=== PATIENT | female | born 1975 ===

== ENCOUNTER 2018-10-23 07:40 | Emergency (ER) | payer OTHER ==
[2018-10-23 07:42] VITALS: BMI 31.1
[2018-10-23 07:44] VITALS: TEMP 98.4; O2SAT 100
--- NOTE | 2018-10-23 09:32 | C.PDOC ---
History Of Present Illness 42 y/o female presents to ED complaining of perineal vaginal pruritis x3 days. Denies any vaginal bleeding or other physical complaints. Time Seen by Provider: 10/23/18 08:03 Chief Complaint (Nursing): Female Genitourinary History Per: Patient History/Exam Limitations: no limitations Onset/Duration Of Symptoms: Days Current Symptoms Are (Timing): Still Present Past Medical History Reviewed: Historical Data, Nursing Documentation, Vital Signs Vital Signs: Last Vital Signs Temp 98.4 F 10/23/18 07:42 Pulse 61 10/23/18 07:42 Resp 16 10/23/18 07:42 BP 101/59 L 10/23/18 07:42 Pulse Ox 100 10/23/18 07:42 Family History: States: No Known Family Hx - Social History Hx Tobacco Use: No Hx Alcohol Use: No Hx Substance Use: No - Immunization History Hx Tetanus Toxoid Vaccination: No Hx Influenza Vaccination: No Hx Pneumococcal Vaccination: No Review Of Systems Except As Marked, All Systems Reviewed And Found Negative. Constitutional: Negative for: Fever Gastrointestinal: Negative for: Abdominal Pain Genitourinary: Positive for: Other (Vaginal pruritis). Negative for: Vaginal Bleeding Skin: Negative for: Rash Physical Exam - Physical Exam Appears: Non-toxic, No Acute Distress Skin: Warm, Dry Head: Atraumatic, Normacephalic Eye(s): bilateral: Normal Inspection Oral Mucosa: Moist Neck: Supple Chest: Symmetrical Cardiovascular: Rhythm Regular, No Murmur Respiratory: Normal Breath Sounds, No Rales, No Rhonchi, No Wheezing Gastrointestinal/Abdominal: Soft, No Tenderness Pelvic: Vaginal Discharge (cottage cheese-like discharge), No Cervical Motion Tenderness, No Tender Uterus, Other (Erythema and scaling in vulva) Extremity: Bilateral: Atraumatic, Normal Color And Temperature, Normal ROM Neurological/Psych: Oriented x3, Normal Speech Gait: Steady ED Course And Treatment O2 Sat by Pulse Oximetry: 100 (RA) Pulse Ox Interpretation: Normal Progress Note: Labs ordered. Patient will be discharged and was given prescription for Diflucan and Terazol cream. Disposition - Disposition Disposition: HOME/ ROUTINE Disposition Time: 09:28 Condition: STABLE Additional Instructions: Follow up with PMD within 1-2 days. Return to ED if feel worse. Prescriptions: Fluconazole [Diflucan] 150 mg PO ONCE #1 tab Terconazole [Terazol 7 (0.4%)CREAM] 1 applic VG QPM #7 tube Instructions: Vulvovaginal Yeast Infection Forms: [facility] (Maltese) Print Language: CENTRAL AFRICAN - Clinical Impression Clinical Impression: Candidal vulvovaginitis - PA / CONSULTANT DIETITIAN / Resident Statement MD/DO has reviewed & agrees with the documentation as recorded. - Scribe Statement The provider has reviewed the documentation as recorded by the Scribe So Silva
[2018-10-23 09:44] VITALS: BP 103/62; PULSE 62; RESP 18
== END 2018-10-23 09:44 | disposition home or self-care (01) ==
LOC: C.ER 07:40
DX: B37.3 Candidiasis of vulva and vagina (principal)

== ENCOUNTER 2018-12-27 13:57 | Outpatient (CLI) | payer OTHER | END 2018-12-27 13:58 | disposition home or self-care (01) | LOC: C.MAMMO 13:57 | DX: R92.8 Other abnormal and inconclusive findings on diagnostic imaging of breast (principal) ==

== ENCOUNTER 2019-01-20 19:11 | Emergency (ER) | payer OTHER | END 2019-01-20 20:15 | disposition home or self-care (01) | LOC: C.ER 19:11 ==

== ENCOUNTER 2019-02-05 09:17 | Outpatient (CLI) | payer OTHER | END 2019-02-05 09:18 | disposition home or self-care (01) | LOC: C.RADH 09:17 | DX: M79.609 Pain in unspecified limb (principal) ==

== ENCOUNTER 2019-03-04 12:54 | Emergency (ER) | payer OTHER ==
[2019-03-04 12:54] VITALS: BMI 31.1
[2019-03-04 13:09] VITALS: RESP 18; O2SAT 97
[2019-03-04] MEDS ORDERED: Sodium Chloride 0.9% 1,000 ML IV ONE (13:24)
--- NOTE | 2019-03-04 13:37 | C.PDOC ---
History Of Present Illness 43 year old female presents to the ED for evaluation of vaginal bleeding for 10 days. States she got her period on 02/22 and has been bleeding since. Patient describes having moderately heavy bleeding, and today noticed some clots. As sociated with crampy pain to her lower abdomen. Patient states this happened last month as well, but she never saw a doctor Otherwise patient reports having normal monthly menstrual cycles. She has changed her pad 8x today so far. Patient denies any dizziness, nausea, vomiting, or other associated complaints. Time Seen by Provider: 03/04/19 13:19 Chief Complaint (Nursing): Female Genitourinary History Per: Patient History/Exam Limitations: no limitations Onset/Duration Of Symptoms: Days (10) Current Symptoms Are (Timing): Still Present Quality Of Discomfort: Cramping Abnormal Vaginal Bleeding: Yes Past Medical History Reviewed: Historical Data, Nursing Documentation, Vital Signs Vital Signs: Last Vital Signs Temp 98.2 F 03/04/19 13:04 Pulse 79 03/04/19 13:04 Resp 18 03/04/19 13:04 BP 122/73 03/04/19 13:04 Pulse Ox 97 03/04/19 13:04 - Medical History PMH: No Chronic Diseases Other Surgeries: Eye surgery Family History: States: Unknown Family Hx - Social History Hx Tobacco Use: No Hx Alcohol Use: No Hx Substance Use: No - Immunization History Hx Tetanus Toxoid Vaccination: No Hx Influenza Vaccination: No Hx Pneumococcal Vaccination: No Review Of Systems Constitutional: Negative for: Fever, Chills Cardiovascular: Negative for: Light Headedness Respiratory: Negative for: Shortness of Breath Gastrointestinal: Positive for: Abdominal Pain. Negative for: Nausea, Vomiting, Diarrhea Genitourinary: Positive for: Vaginal Bleeding. Negative for: Dysuria, Frequency Musculoskeletal: Negative for: Back Pain Neurological: Negative for: Weakness, Dizziness Physical Exam - Physical Exam Appears: Well, Non-toxic, No Acute Distress Skin: Warm, Dry, No Pale Head: Atraumatic, Normacephalic Eye(s): bilateral: Normal Inspection Oral Mucosa: Moist Neck: Normal ROM Chest: Symmetrical Cardiovascular: Rhythm Regular, No Murmur Respiratory: Normal Breath Sounds, No Rales, No Rhonchi, No Wheezing Gastrointestinal/Abdominal: Soft, Tenderness (suprapubic), No Distention, No Guarding, No Rebound Extremity: Bilateral: Atraumatic, Normal Color And Temperature, Normal ROM Neurological/Psych: Oriented x3, Normal Speech Gait: Steady ED Course And Treatment - Laboratory Results Result Diagrams: 03/04/19 14:09 Lab Interpretation: Abnormal O2 Sat by Pulse Oximetry: 97 (RA) Pulse Ox Interpretation: Normal - CT Scan/US Pelvic US Other Rad Studies (CT/US): Read By Radiologist, Radiology Report Reviewed CT/US Interpretation: Accession No. : [id number]. Patient Name / ID : KATHY ROGEL / [id number]. Exam Date : 03/04/2019 14:21:49 ( Approved ). Study Comment : Sex / Age : F / 43Y. Creator : Aleksandr Bustamante MD. Dictator : Aleksandr Bustamante MD. Grinder Setup Operator : Shingle Bolt Cutter : Aleksandr Bustamante MD. Approver2 : Report Date : 03/04/2019 14:58:41. My Comment : . Date of service: 03/04/2019. HISTORY: pelvic pain and bleeding for 10 day. COMPARISON: None available. TECHNIQUE: Transabdominal and transvaginal. FINDINGS: UTERUS: Measures 9.0 x 4.5 x 6.4 cm. Heterogeneous echotexture. Two discrete fibroids identified. Posterior fundal intramural fibroid, 2.2 x 2.3 x 2.9 cm. Posterior mid uterine body intramural fibroid, 1.0 x 1.0 x 1.3 cm. ENDOMETRIUM: Measures 8 mm in diameter. Unremarkable. CERVIX: No cervical abnormality identified. RIGHT OVARY: Not visualized. LEFT OVARY: Measures 2.4 x 1.7 x 1.4 cm. No solid mass. Normal flow. FREE FLUID: There is a small amount of fluid in the cul-de-sac. OTHER FINDINGS: None. IMPRESSION: Two small uterine fibroids. Small amount of free fluid in cul-de-sac. No additional abnormality. Medical Decision Making Medical Decision Making: Impression: Vaginal bleeding Initial Plan: - Blood work - UA - Urine preg POC - 1L IV fluids - Pending pelvic/transvaginal US Labs reviewed Hgb slightly low, not critical. [address] Gonzales for consult. Discussed case details and lab findings. She agrees the patient is stable and can be treated with oral Provera and follow up with microbiology coordinator outpatient. Patient remained well in no distress with normal vital signs. Denied any dizziness or fatigue. Plan is to discharge with Rx Provera Recommend she take OTC vitamins and iron supplements with folic acid. Advise she follow up with microbiology coordinator. Copies of labs and US report provided Disposition Counseled Patient/Family Regarding: Studies Performed, Diagnosis, Need For Followup - Disposition [facility] [[facility]] Disposition: HOME/ ROUTINE Disposition Time: 15:45 Condition: STABLE Additional Instructions: Take medication Provera 1 tab of 10mg 3 times a day for 7 days then 1 tab 2 times a day for 7 days then 1 tab daily for 7 days Follow up with microbiology coordinator Your ultrasound shows fibroid Vilonia el medicamento Provera 1 ficha de 10 mg 3 veces al da héctor 7 acuña luego 1 tab 2 veces al da héctor 7 acuña luego 1 pestaa diaria por 7 acuña Seguimiento con gineclogo. Arnett ultrasonido muestra fibroide. Prescriptions: MedroxyPROGESTERone [Provera] 10 mg PO DAILY #42 tab Instructions: Heavy Periods (DC) Print Language: [place] ZE[place]ANDER - POA Present On Arrival: None - Clinical Impression Clinical Impression: Menorrhagia - PA / CHAUFFEUR MOTORBUS / Resident Statement MD/DO has reviewed & agrees with the documentation as recorded. - Scribe Statement The provider has reviewed the documentation as recorded by the Scribe Ambar Capellan All medical record entries made by the Tyra were at my direction and personally dictated by me. I have reviewed the chart and agree that the record accurately reflects my personal performance of the history, physical exam, medical decision making, and the department course for this patient. I have also personally directed, reviewed, and agree with the discharge instructions and disposition.
[2019-03-04 14:15] LABS: BASO % 0.6 % (0.0-2.0); EOS # 0.5 K/uL (0.0-0.7); EOS % 5.4 % (0.0-4.0); HEMOGLOBIN 10.8 g/dL (11.0-16.0); LYMPH # 2.5 K/uL (1.0-4.3); LYMPH % 28.4 % (20.0-40.0); MEAN CELL VOLUME 91.5 fL (81.0-99.0); MEAN CORPUSCULAR HEMOGLOBIN 30.9 pg (27.0-31.0); MEAN CORPUSCULAR HGB CONC 33.7 g/dL (33.0-37.0); MEAN PLATELET VOLUME 9.1 fL (7.2-11.7); MONO # 0.6 K/uL (0.0-0.8); MONO % 7.1 % (0.0-10.0); NEUT # 5.1 K/uL (1.8-7.0); NEUT % 58.5 % (50.0-75.0); RBC 3.49 Mil/uL (3.80-5.20); RED CELL DISTRIBUTION WIDTH 13.5 % (11.5-14.5); WHITE BLOOD COUNT 8.7 K/uL (4.8-10.8)
[2019-03-04 14:26] LABS: INR 1.1; PROTHROMBIN TIME 11.5 SECONDS (9.7-12.2)
--- NOTE | 2019-03-04 15:02 | US ---
Date of service: 03/04/2019 HISTORY: pelvic pain and bleeding for 10 day COMPARISON: None available. TECHNIQUE: Transabdominal and transvaginal FINDINGS: UTERUS: Measures 9.0 x 4.5 x 6.4 cm. Heterogeneous echotexture. Two discrete fibroids identified. Posterior fundal intramural fibroid, 2.2 x 2.3 x 2.9 cm. Posterior mid uterine body intramural fibroid, 1.0 x 1.0 x 1.3 cm. ENDOMETRIUM: Measures 8 mm in diameter. Unremarkable. CERVIX: No cervical abnormality identified. RIGHT OVARY: Not visualized LEFT OVARY: Measures 2.4 x 1.7 x 1.4 cm. No solid mass. Normal flow. FREE FLUID: There is a small amount of fluid in the cul-de-sac. OTHER FINDINGS: None. IMPRESSION: Two small uterine fibroids. Small amount of free fluid in cul-de-sac. No additional abnormality.
[2019-03-04 15:34] LABS: SQUAMOUS EPITHIAL < 1 /hpf (0-5); URINE BILIRUBIN NEGATIVE (NEGATIVE); URINE CLARITY Clear (Clear); URINE COLOR Straw (YELLOW); URINE GLUCOSE (UA) NORMAL (Normal); URINE LEUKOCYTE ESTERASE NEG Leu/uL (Negative); URINE PROTEIN NEGATIVE (NEGATIVE); URINE UROBILINOGEN NORMAL mg/dL (0.2-1.0)
[2019-03-04 15:38] LABS: URINE BLOOD TRACE (NEGATIVE)
[2019-03-04 16:09] VITALS: BP 109/66; PULSE 64; TEMP 98.1
== END 2019-03-04 16:17 | disposition home or self-care (01) ==
LOC: C.ER 12:54
DX: N92.0 Excessive and frequent menstruation with regular cycle (principal)
CPT/HCPCS: 76830; 76856; 81001; 81025; 85025; 85610; 85730; 96360; 99285; J7030

== ENCOUNTER 2019-03-06 10:59 | Emergency (ER) | payer OTHER ==
[2019-03-06 10:59] VITALS: BMI 31.1
[2019-03-06 11:05] VITALS: O2SAT 100
[2019-03-06] MEDS ORDERED: Sodium Chloride 0.9% 1,000 ML IV ONE (11:39)
--- NOTE | 2019-03-06 11:40 | C.PDOC ---
History Of Present Illness 43 year old female with PMHx of arthritis presents to the ED complaining of vaginal bleeding, crampy lower abdominal and lower back pain. States she was seen in the ED 2 days ago for same complaint and she was prescribed Provera but notes no improvement. Denies taking any medications for pain. States she has changed pads 6 times today. Denies any fever, vomiting, nausea, dysuria, or any other complaints. Time Seen by Provider: 03/06/19 11:19 Chief Complaint (Nursing): Female Genitourinary History Per: Patient History/Exam Limitations: no limitations Onset/Duration Of Symptoms: Days Current Symptoms Are (Timing): Still Present Associated Symptoms: Urinary Symptoms. denies: Fever, Chills, Nausea, Vomiting Abnormal Vaginal Bleeding: Yes Past Medical History Reviewed: Historical Data, Nursing Documentation, Vital Signs Vital Signs: Last Vital Signs Temp 98.4 F 03/06/19 11:02 Pulse 77 03/06/19 11:02 Resp 20 03/06/19 11:02 BP 120/72 03/06/19 11:02 Pulse Ox 100 03/06/19 11:02 - Medical History PMH: Arthritis Other Surgeries: Hx of surgeries Family History: States: No Known Family Hx - Social History Hx Tobacco Use: No Hx Alcohol Use: No Hx Substance Use: No - Immunization History Hx Tetanus Toxoid Vaccination: No Hx Influenza Vaccination: No Hx Pneumococcal Vaccination: No Review Of Systems Constitutional: Negative for: Fever, Chills Gastrointestinal: Positive for: Abdominal Pain. Negative for: Nausea, Vomiting Genitourinary: Positive for: Vaginal Bleeding. Negative for: Dysuria Musculoskeletal: Positive for: Back Pain Physical Exam - Physical Exam Appears: Non-toxic, No Acute Distress Skin: Warm, Dry, No Rash Head: Atraumatic, Normacephalic Eye(s): bilateral: PERRL, EOMI Neck: Supple Chest: No Tenderness Cardiovascular: Rhythm Regular, No Murmur Respiratory: No Rales, No Rhonchi, No Wheezing, Other (CTA B/L) Gastrointestinal/Abdominal: Bowel Sounds (Normoactive ), Soft, Tenderness (lower abdominal tenderness ), No Guarding, No Rebound Back: Other (Lower back tenderness ) Extremity: No Calf Tenderness, No Swelling Neurological/Psych: Oriented x3, Normal Speech, Normal Cognition Gait: Steady ED Course And Treatment - Laboratory Results Result Diagrams: 03/06/19 11:54 03/06/19 11:54 O2 Sat by Pulse Oximetry: 100 (RA) Pulse Ox Interpretation: Normal Medical Decision Making Medical Decision Making: Plan - Bloodwork - Toradol 30mg IVP - Urine cultures - UA pt had neg urine preg test 2 days ago in ED, not ordered today. [address] Farris from animal husbandry worker; recommends pt remain on provera until completion and not to expect decreased bleeding until after a week of medication. This was explained to patient and ; pt reports abdominal pain has resolved at this time. since hgb and hct have decreased, and pt may still bleed for a few days, will d/c with nsaids, iron and stool softener and pt needs to find animal husbandry worker f/u this week. patient and understand plan. Disposition Counseled Patient/Family Regarding: Studies Performed, Diagnosis, Need For Followup, Rx Given - Disposition Referrals: [facility] [Outside] [facility] [Outside] [facility] [Outside] Disposition: HOME/ ROUTINE Disposition Time: 14:20 Condition: IMPROVED Additional Instructions: MEDICINE SENT TO [facility] [address] [place] los medicamentos segn lo prescrito. Continuar tomando medroxiprogesterona hasta que termine. Es probable que tome al menos susnaa semana de medicacin hasta que el sangrado disminuya. Rachael un seguimiento con el gineclogo lo antes posible. Take medications as prescribed. Continue taking medroxyprogesterone until done. It will likely take at least a week of medication until bleeding slows down. Follow up with firer kiln as soon as possible. Prescriptions: Acetaminophen [Tylenol 325mg tab] 650 mg PO Q4 #50 tab Docusate Sodium [Colace] 100 mg PO BID #60 capsule Ferrous Sulfate 325 mg PO BID #60 tablet Naproxen 500 mg PO BID #40 tab Instructions: Heavy Periods (DC) Forms: Gen Discharge Inst Hungarian, [facility] (Hungarian) Print Language: SLOVENIAN - Clinical Impression Clinical Impression: Menorrhagia, Anemia - PA / PAPER PRODUCTS SUPERVISOR / Resident Statement MD/DO has reviewed & agrees with the documentation as recorded. - Scribe Statement The provider has reviewed the documentation as recorded by the Scribe Apoorva Wynne All medical record entries made by the Scribe were at my direction and personally dictated by me. I have reviewed the chart and agree that the record accurately reflects my personal performance of the history, physical exam, medical decision making, and the department course for this patient. I have also personally directed, reviewed, and agree with the discharge instructions and disposition.
[2019-03-06] MEDS ORDERED: Sodium Chloride 0.9% 1,000 ML ONE (11:52)
[2019-03-06 12:02] LABS: BASO # 0.1 K/uL (0.0-0.2); BASO % 0.8 % (0.0-2.0); EOS # 0.4 K/uL (0.0-0.7); EOS % 4.8 % (0.0-4.0); HEMOGLOBIN 9.1 g/dL (11.0-16.0); LYMPH # 2.6 K/uL (1.0-4.3); LYMPH % 28.4 % (20.0-40.0); MEAN CELL VOLUME 91.7 fL (81.0-99.0); MEAN CORPUSCULAR HEMOGLOBIN 31.2 pg (27.0-31.0); MONO # 0.5 K/uL (0.0-0.8); MONO % 5.6 % (0.0-10.0); NEUT # 5.6 K/uL (1.8-7.0); NEUT % 60.4 % (50.0-75.0); RBC 2.92 Mil/uL (3.80-5.20); RED CELL DISTRIBUTION WIDTH 13.5 % (11.5-14.5); WHITE BLOOD COUNT 9.3 K/uL (4.8-10.8)
[2019-03-06 12:12] LABS: ALB/GLOB RATIO 1.6 (1.0-2.1); ALBUMIN 4.1 g/dL (3.5-5.0); ALT/SGPT 26 U/L (9-52); AST/SGOT 23 U/L (14-36); BLOOD UREA NITROGEN 11 mg/dL (7-17); CALCIUM 8.9 mg/dl (8.6-10.4); GFR NON-AFRICAN AMERICAN > 60
[2019-03-06 12:24] LABS: INR 1.1; PROTHROMBIN TIME 11.6 SECONDS (9.7-12.2)
[2019-03-06 13:28] LABS: SQUAMOUS EPITHIAL 1 /hpf (0-5); URINE BILIRUBIN NEGATIVE (NEGATIVE); URINE BLOOD 1+ (NEGATIVE); URINE CLARITY Clear (Clear); URINE COLOR Yellow (YELLOW); URINE GLUCOSE (UA) NORMAL (Normal); URINE LEUKOCYTE ESTERASE NEG Leu/uL (Negative); URINE PROTEIN NEGATIVE (NEGATIVE); URINE UROBILINOGEN NORMAL mg/dL (0.2-1.0)
[2019-03-06 14:38] VITALS: BP 118/74; PULSE 75; RESP 18; TEMP 98.3
== END 2019-03-06 14:37 | disposition home or self-care (01) ==
LOC: C.ER 10:59
DX: N92.0 Excessive and frequent menstruation with regular cycle (principal); D64.9 Anemia, unspecified
CPT/HCPCS: 80053; 81001; 85025; 85610; 85730; 86850; 86900; 87086; 96361; 96374; 99285; J1885; J7030

== ENCOUNTER 2019-03-24 17:02 | Emergency (ER) | payer OTHER ==
[2019-03-24 17:02] VITALS: BMI 31.1
[2019-03-24 17:14] VITALS: RESP 20; O2SAT 99
[2019-03-24 18:05] LABS: BASO # 0.1 K/uL (0.0-0.2); BASO % 0.5 % (0.0-2.0); EOS # 0.5 K/uL (0.0-0.7); EOS % 4.6 % (0.0-4.0); HEMOGLOBIN 11.2 g/dL (11.0-16.0); LYMPH # 3.2 K/uL (1.0-4.3); LYMPH % 29.6 % (20.0-40.0); MEAN CELL VOLUME 92.5 fL (81.0-99.0); MEAN CORPUSCULAR HEMOGLOBIN 30.8 pg (27.0-31.0); MEAN CORPUSCULAR HGB CONC 33.3 g/dL (33.0-37.0); MEAN PLATELET VOLUME 8.3 fL (7.2-11.7); MONO # 0.7 K/uL (0.0-0.8); MONO % 6.5 % (0.0-10.0); NEUT # 6.3 K/uL (1.8-7.0); NEUT % 58.8 % (50.0-75.0); RBC 3.64 Mil/uL (3.80-5.20); RED CELL DISTRIBUTION WIDTH 15.8 % (11.5-14.5); WHITE BLOOD COUNT 10.8 K/uL (4.8-10.8)
[2019-03-24 18:28] LABS: ALB/GLOB RATIO 1.2 (1.0-2.1); ALBUMIN 4.3 g/dL (3.5-5.0); ALT/SGPT 19 U/L (9-52); AST/SGOT 21 U/L (14-36); BLOOD UREA NITROGEN 14 mg/dL (7-17); CALCIUM 9.2 mg/dl (8.6-10.4); GFR NON-AFRICAN AMERICAN > 60
[2019-03-24 18:33] LABS: HCG,QUALITATIVE URINE NEGATIVE (NEGATIVE); SQUAMOUS EPITHIAL < 1 /hpf (0-5); URINE BILIRUBIN NEGATIVE (NEGATIVE); URINE BLOOD 2+ (NEGATIVE); URINE CLARITY Hazy (Clear); URINE COLOR Yellow (YELLOW); URINE GLUCOSE (UA) NORMAL (Normal); URINE LEUKOCYTE ESTERASE NEG Leu/uL (Negative); URINE PROTEIN NEGATIVE (NEGATIVE); URINE UROBILINOGEN NORMAL mg/dL (0.2-1.0)
--- NOTE | 2019-03-24 19:08 | C.PDOC ---
History Of Present Illness 43 year old female presents to ED with complaint of prolonged vaginal bleeding. Patient was seen on March 04 for the same symptoms. Pelvic US showed presence of 2 uterine fibroids. Patient also had a hemoglobin of 9 and has improved to an 11. Patient was on a 3 week taper on Provera. Patient states that the vaginal bleeding has continued unchanged since 03/04. She denies pelvic pain, vaginal discharge, and fever. Time Seen by Provider: 03/24/19 17:45 Chief Complaint (Nursing): Female Genitourinary History Per: Patient History/Exam Limitations: no limitations Onset/Duration Of Symptoms: Other (3 weeks) Current Symptoms Are (Timing): Still Present Associated Symptoms: denies: Fever, Chills, Nausea, Vomiting, Diarrhea Abnormal Vaginal Bleeding: Yes Past Medical History Reviewed: Historical Data, Nursing Documentation, Vital Signs Vital Signs: Last Vital Signs Temp 98.8 F 03/24/19 17:10 Pulse 79 03/24/19 17:10 Resp 20 03/24/19 17:10 BP 109/71 03/24/19 17:10 Pulse Ox 99 03/24/19 17:10 Primary Care Provider: Non [facility] Provider, - Medical History PMH: Arthritis Surgical History: No Surg Hx Family History: States: Unknown Family Hx - Social History Hx Tobacco Use: No Hx Alcohol Use: No Hx Substance Use: No - Immunization History Hx Tetanus Toxoid Vaccination: No Hx Influenza Vaccination: No Hx Pneumococcal Vaccination: No Review Of Systems Constitutional: Negative for: Fever, Chills Genitourinary: Positive for: Vaginal Bleeding. Negative for: Dysuria, Hematuria, Vaginal Discharge, Pelvic Pain Neurological: Negative for: Weakness, Numbness Physical Exam - Physical Exam Appears: Well, Non-toxic, No Acute Distress Skin: Pale Head: Atraumatic, Normacephalic Eye(s): bilateral: Normal Inspection, PERRL, EOMI Neck: Normal ROM, Supple Chest: Symmetrical, No Deformity Cardiovascular: Rhythm Regular, No Murmur Respiratory: No Accessory Muscle Use, No Rales, No Rhonchi, No Wheezing Gastrointestinal/Abdominal: Soft, No Tenderness Pelvic: Other (deferred) Extremity: Capillary Refill (<2 seconds) Neurological/Psych: Oriented x3, Normal Speech, Normal Cognition ED Course And Treatment - Laboratory Results Result Diagrams: 03/24/19 18:02 03/24/19 18:02 Lab Results: Total Bilirubin 0.1 mg/dL (0.2-1.3) L 03/24/19 18:02 AST 21 U/L (14-36) 03/24/19 18:02 ALT 19 U/L (9-52) 03/24/19 18:02 Alkaline Phosphatase 58 U/L (38-126) 03/24/19 18:02 Total Protein 7.8 g/dL (6.3-8.3) 03/24/19 18:02 Albumin 4.3 g/dL (3.5-5.0) 03/24/19 18:02 Globulin 3.5 gm/dL (2.2-3.9) 03/24/19 18:02 Albumin/Globulin Ratio 1.2 (1.0-2.1) 03/24/19 18:02 Urine Color Yellow (YELLOW) 03/24/19 18:12 Urine Clarity Hazy (Clear) 03/24/19 18:12 Urine pH 5.0 (5.0-8.0) 03/24/19 18:12 Ur Specific [place] 1.021 (1.003-1.030) 03/24/19 18:12 Urine Protein Negative mg/dL (NEGATIVE) 03/24/19 18:12 Urine Glucose (UA) Normal mg/dL (Normal) 03/24/19 18:12 Urine Ketones Negative mg/dL (NEGATIVE) 03/24/19 18:12 Urine Blood 2+ (NEGATIVE) H 03/24/19 18:12 Urine Nitrate Negative (NEGATIVE) 03/24/19 18:12 Urine Bilirubin Negative (NEGATIVE) 03/24/19 18:12 Urine Urobilinogen Normal mg/dL (0.2-1.0) 03/24/19 18:12 Ur Leukocyte Esterase Neg Abhishek/uL (Negative) 03/24/19 18:12 Urine WBC (Auto) 2 /hpf (0-5) 03/24/19 18:12 Urine RBC (Auto) 16 /hpf (0-3) H 03/24/19 18:12 Ur Squamous Epith Cells < 1 /hpf (0-5) 03/24/19 18:12 Urine HCG, Qual Negative (NEGATIVE) 03/24/19 18:12 Beta HCG, Quant < 2.39 mIU/ML 03/24/19 18:02 Urine HCG, Qual Negative (NEGATIVE) 03/24/19 18:12 Lab Interpretation: Normal (HGB 11.2 is IMPROVED from prior eval 9.7. normocytic with widened RDW) Urine POC: Negative O2 Sat by Pulse Oximetry: 99 (in RA) Pulse Ox Interpretation: Normal Progress Note: Type and screen, B-HCG, CMP, CBC, and UA ordered for patient. Reevaluation Time: 19:15 Reassessment Condition: Unchanged - Physician Consult Information Outcome Of Conversation: d/w Dr. Leida GIRON Stoker Erector- ok to d/c home with new OBCP's and opt f/u. Medical Decision Making Medical Decision Making: DUB known 2 small uterine fibroids IMPROVING HGB Start OBCP's per RAILROAD CAR CHECKER and opt f/u. Disposition Doctor Will See Patient In The: Office Counseled Patient/Family Regarding: Studies Performed, Diagnosis - Disposition Referrals: [facility] [Outside] [facility] [Outside] [facility] [Outside] [facility] [Outside] Disposition: HOME/ ROUTINE Disposition Time: 19:16 Condition: GOOD Additional Instructions: sigue el Micronor- pastilla anti-conceptivo, diario por 3 semanas. Lluego susana semana de descanso Repita L[facility] para buscar un Gynocologo privado o' presenta en la [facility]) para seguir kentrell cuidados gynocolgicos. Prescriptions: Norethindrone [Ortho Micronor] 0.35 mg PO DAILY #20 tablet Instructions: Absent or Irregular Periods Forms: [employer] (Citizen [place]) Print Language: GRENADIAN - Clinical Impression Clinical Impression: DUB (dysfunctional uterine bleeding) - Scribe Statement The provider has reviewed the documentation as recorded by the Scribe (Jeny Arcos) All medical record entries made by the Scribe were at my direction and personally dictated by me. I have reviewed the chart and agree that the record accurately reflects my personal performance of the history, physical exam, medical decision making, and the department course for this patient. I have also personally directed, reviewed, and agree with the discharge instructions and disposition.
[2019-03-24 19:53] VITALS: BP 110/66; PULSE 81; TEMP 98.2
== END 2019-03-24 19:52 | disposition home or self-care (01) ==
LOC: C.ER 17:02
DX: N93.8 Other specified abnormal uterine and vaginal bleeding (principal)